=== PATIENT | male | born 1940 | race Caucasian/White ===

== ENCOUNTER → 2018-06-06 | Outpatient (CLI) | payer MEDICARE, OTHER | LOC: M WHC 09:44 | DX: M85.819 Other specified disorders of bone density and structure, unspecified shoulder (principal) | CPT/HCPCS: 77080 ==

== ENCOUNTER → 2019-12-12 | Outpatient (CLI) | payer MEDICARE, OTHER ==
--- NOTE | 2019-12-12 14:02 | REP ---
REASON FOR EXAM: Chest wall contusion. There are no priors for comparison. Six views of the right ribs were obtained with frontal view of the chest. The frontal view of the chest shows the lung franklin to be clear, pleural angles to be sharp, and the cardiomediastinal silhouette to be within normal limits. Multiple views of the right ribs show a fracture involving the anterior aspect of the right 11th and possibly 10th ribs. IMPRESSION: Fracture involving the anterior aspect of the right 11th rib with a possible 10th rib fracture as well. Electronically Signed by Se Cronin DO 12/12/2019 02:24 P
== END ==
LOC: M WUC 09:25
PROVIDERS: ATTEND Physician Assistant
DX: S22.31XA Fracture of one rib, right side, initial encounter for closed fracture (principal); X58.XXXA Exposure to other specified factors, initial encounter; Y92.89 Other specified places as the place of occurrence of the external cause

== ENCOUNTER → 2020-01-02 | Outpatient (CLI) | payer MEDICARE, OTHER ==
[2020-01-02 14:29] LABS: BASO % 0.6 % (0.0-1.0); EOS # 0.1 10^3/uL (0.0-0.5); EOS % 1.9 % (0.0-3.0); HEMOGLOBIN 13.7 g/dl (13.5-17.5); LYMPH # 2.3 10^3/uL (1.5-5.0); MEAN CORPUSCULAR HEMOGLOBIN 31.8 pg (27.0-33.0); MEAN CORPUSCULAR HGB CONC 33.4 g/dl (32.0-36.5); MEAN CORPUSCULAR VOLUME 95.1 fl (80.0-96.0); MONO # 0.5 10^3/uL (0.0-0.8); MONO % 6.5 % (0.0-5.0); NEUTROPHILS % 57.7 % (36.0-66.0); PLATELET COUNT, AUTOMATED 218 10^3/uL (150-450); RED BLOOD COUNT 4.31 10^6/uL (4.30-6.10); WHITE BLOOD COUNT 6.9 10^3/uL (4.0-10.0)
[2020-01-02 14:56] LABS: ALBUMIN 4.4 GM/DL (3.2-5.2); ALT/SGPT 21 U/L (12-78); BILIRUBIN,TOTAL 1.3 MG/DL (0.2-1.0); BLOOD UREA NITROGEN 22 MG/DL (7-18); CALCIUM LEVEL 9.5 MG/DL (8.8-10.2); CARBON DIOXIDE LEVEL 23 MEQ/L (21-32); CHLORIDE LEVEL 106 MEQ/L (98-107); CREATININE FOR GFR 1.11 MG/DL (0.70-1.30); GLOMERULAR FILTRATION RATE > 60.0 (>42); GLUCOSE, FASTING 171 MG/DL (70-100); POTASSIUM SERUM 4.3 MEQ/L (3.5-5.1); SODIUM LEVEL 140 MEQ/L (136-145); TOTAL PROTEIN 7.9 GM/DL (6.4-8.2)
== END ==
LOC: M WUC 11:56
PROVIDERS: ATTEND Physician Assistant
DX: R04.0 Epistaxis (principal)

== ENCOUNTER → 2020-06-07 | Outpatient (CLI) | payer SELFPAY | LOC: M LABSMTC 11:37 → EEVIPCON 11:37 | PROVIDERS: ATTEND Pediatrics | DX: Z20.828 Contact with and (suspected) exposure to other viral communicable diseases (principal) ==

== ENCOUNTER → 2020-06-17 | Outpatient (CLI) | payer SELFPAY | LOC: M LABSMTC 14:07 | PROVIDERS: ATTEND Pediatrics | DX: Z20.828 Contact with and (suspected) exposure to other viral communicable diseases (principal) ==

== ENCOUNTER → 2020-11-20 | Outpatient (CLI) | payer OTHER ==
--- NOTE | 2020-11-21 02:01 | REP ---
INDICATION: PAIN IN LEFT HIP COMPARISON: None. TECHNIQUE: AP, lateral, coned-down views of the lumbar spine. FINDINGS: Three views of the lumbosacral spine demonstrate satisfactory alignment and lordosis without acute fracture / compression injury or subluxation. Moderate/advanced multilevel degenerative changes include endplate sclerosis, osteophytosis, disc space narrowing and facet hypertrophy. Findings most pronounced at L5-S1. IMPRESSION: 1. No acute fracture / compression injury or subluxation. 2. Moderate to advanced multilevel degenerative changes. <Electronically signed by Russell Andrea > 11/21/20 0156
--- NOTE | 2020-11-21 02:07 | REP ---
INDICATION: PAIN IN LEFT HIP COMPARISON: None. TECHNIQUE: AP and frog-lateral views of the left hip FINDINGS: Generalized age-related changes include increased sclerosis to the acetabulum with joint space narrowing and marginal spurring. No evidence for acute or healed injury. Surrounding soft tissues are normal. IMPRESSION: generalized age-related degenerative changes. <Electronically signed by Russell Andrea > 11/21/20 0202
== END ==
LOC: M RAD 17:15
PROVIDERS: ATTEND Nurse Practitioner Family
DX: M51.37 Other intervertebral disc degeneration, lumbosacral region (principal); M16.12 Unilateral primary osteoarthritis, left hip

== ENCOUNTER → 2021-03-04 | Outpatient (RCR) | payer MEDICARE, OTHER | LOC: M PT 02-12 10:08 | PROVIDERS: ATTEND Student in an Organized Health Care Education/Training Program | DX: R26.81 Unsteadiness on feet (principal); E11.40 Type 2 diabetes mellitus with diabetic neuropathy, unspecified ==

== ENCOUNTER 2021-04-01 13:01 | Outpatient (RCR) | payer MEDICARE, OTHER | END 2021-04-03 | LOC: M PT 13:01 | PROVIDERS: ATTEND Student in an Organized Health Care Education/Training Program | DX: R26.81 Unsteadiness on feet (principal); E11.40 Type 2 diabetes mellitus with diabetic neuropathy, unspecified ==

== ENCOUNTER 2021-04-10 12:14 | Outpatient (RCR) | payer MEDICARE, OTHER | END 2021-05-04 | LOC: M PT 12:14 | PROVIDERS: ATTEND Student in an Organized Health Care Education/Training Program | DX: R26.81 Unsteadiness on feet (principal); E11.40 Type 2 diabetes mellitus with diabetic neuropathy, unspecified ==

== ENCOUNTER → 2022-10-06 | Outpatient (CLI) | payer MEDICARE, OTHER ==
[2022-10-06 12:47] LABS: BLOOD UREA NITROGEN 16 MG/DL (9-23); CREATININE FOR GFR 0.95 MG/DL (0.70-1.30); GLOMERULAR FILTRATION RATE > 60.0 (>35)
== END ==
LOC: M LAB 11:40
PROVIDERS: ATTEND Student in an Organized Health Care Education/Training Program
DX: Z13.228 Encounter for screening for other metabolic disorders (principal)

== ENCOUNTER → 2022-10-08 | Outpatient (CLI) | payer MEDICARE, OTHER ==
[~2022-10-08] MED LIST: ISOVUE-370 76% 100ML VIAL As Ordered ONE
== END ==
LOC: M RAD 12:34
PROVIDERS: ATTEND Student in an Organized Health Care Education/Training Program
DX: R07.0 Pain in throat (principal)
CPT/HCPCS: 70470; 70491; Q9967

== ENCOUNTER → 2023-11-12 | Outpatient (REF) | payer MEDICARE, OTHER | LOC: M LAB REF 11-11 14:15 | PROVIDERS: ATTEND Physician Assistant | DX: R19.7 Diarrhea, unspecified (principal) ==

== ENCOUNTER → 2024-03-01 | Outpatient (CLI) | payer MEDICARE, OTHER | LOC: M RAD 13:55 | PROVIDERS: ATTEND Internal Medicine Endocrinology, Diabetes & Metabolism | DX: E05.00 Thyrotoxicosis with diffuse goiter without thyrotoxic crisis or storm (principal) | CPT/HCPCS: 78012; A9516 ==

== ENCOUNTER → 2024-03-08 | Outpatient (CLI) | payer MEDICARE, OTHER ==
[~2024-03-08] MED LIST changes: -ISOVUE-370 76% 100ML VIAL As Ordered ONE; +PROHANCE 279.3MG/ML 5ML VIAL As Ordered ONE
== END ==
LOC: M RAD 09:52
PROVIDERS: ATTEND Student in an Organized Health Care Education/Training Program
DX: I67.82 Cerebral ischemia (principal); H70.93 Unspecified mastoiditis, bilateral; R89.1 Abnormal level of hormones in specimens from other organs, systems and tissues
CPT/HCPCS: 70553; A9576

== ENCOUNTER → 2024-06-30 | Outpatient (REF) | payer MEDICARE, OTHER ==
[2024-06-30 17:22] LABS: ALBUMIN 3.9 G/DL (3.2-5.2); ALKALINE PHOSPHATASE 163 U/L (40-129); ALT/SGPT 20 U/L (7.0-40); AST/SGOT 17 U/L (<34); BILIRUBIN,TOTAL 1.1 MG/DL (0.3-1.2); BLOOD UREA NITROGEN 25 MG/DL (9-23); CARBON DIOXIDE LEVEL 29 MMOL/L (20-31); CHLORIDE LEVEL 103 MMOL/L (98-107); CHOLESTEROL LEVEL 103 MG/DL (<200); CHOLESTEROL RISK RATIO 2.63 (<5); CREATININE FOR GFR 0.93 MG/DL (0.70-1.30); GLOMERULAR FILTRATION RATE > 60.0 (>35); GLUCOSE, FASTING 128 MG/DL (74-106); HDL CHOLESTEROL 39.1 MG/DL (>40); LDL CHOLESTEROL 42.1 MG/DL (<100); NON-HDL-C 63.9 MG/DL; POTASSIUM SERUM 5.2 MMOL/L (3.5-5.1); SODIUM LEVEL 141 MMOL/L (136-145); TRIGLYCERIDES LEVEL 109 MG/DL (<150)
[2024-06-30 17:29] LABS: TOTAL 25(OH) VITAMIN D 41.7 NG/ML (20.0-100.0)
[2024-06-30 17:54] LABS: HIV 1&2 SCREEN NEGATIVE (NEGATIVE)
[2024-06-30 18:02] LABS: HEPATITIS C VIRUS ABY INDEX < 0.02 INDEX (<0.8)
== END ==
LOC: M LAB REF 16:28
PROVIDERS: ATTEND Physician Assistant
DX: E55.9 Vitamin D deficiency, unspecified (principal); E11.9 Type 2 diabetes mellitus without complications; Z11.9 Encounter for screening for infectious and parasitic diseases, unspecified

== ENCOUNTER → 2024-10-16 | Outpatient (CLI) | payer MEDICARE, OTHER ==
[2024-10-16 15:25] LABS: FREE T4 0.71 NG/DL (0.89-1.76)
[2024-10-16 15:26] LABS: THYROID STIMULATING HORMONE 6.622 uIU/ML (0.55-4.78)
== END ==
LOC: M WUC 12:16
PROVIDERS: ATTEND Nurse Practitioner Family
DX: E05.00 Thyrotoxicosis with diffuse goiter without thyrotoxic crisis or storm (principal)

== ENCOUNTER → 2025-01-22 | Outpatient (CLI) | payer MEDICARE, OTHER ==
[2025-01-22 18:14] LABS: FREE T4 1.15 NG/DL (0.89-1.76)
== END ==
LOC: M WUC 14:44
PROVIDERS: ATTEND Nurse Practitioner Family
DX: E05.00 Thyrotoxicosis with diffuse goiter without thyrotoxic crisis or storm (principal)

== ENCOUNTER → 2025-05-14 | Outpatient (CLI) | payer MEDICARE, OTHER ==
[2025-05-14 19:35] LABS: FREE T4 1.47 NG/DL (0.89-1.76)
== END ==
LOC: M WUC 14:44
PROVIDERS: ATTEND Nurse Practitioner Family
DX: E05.00 Thyrotoxicosis with diffuse goiter without thyrotoxic crisis or storm (principal)

== ENCOUNTER → 2025-06-25 | Outpatient (REF) | payer MEDICARE, OTHER ==
[2025-06-25 16:41] LABS: APPEARANCE, URINE CLEAR (CLEAR); BACTERIA, URINE AUTO NEGATIVE (NEGATIVE); BILIRUBIN, URINE AUTO NEGATIVE (NEGATIVE); BLOOD, URINE BLOOD NEGATIVE (NEGATIVE); GLUCOSE, URINE (UA) AUTO NEGATIVE (NEGATIVE); KETONE, URINE AUTO NEGATIVE (NEGATIVE); LEUKOCYTE ESTERASE, URINE AUTO NEGATIVE (NEGATIVE); MUCUS, URINE SMALL (NEGATIVE); NITRITE, URINE AUTO NEGATIVE (NEGATIVE); PROTEIN, URINE AUTO NEGATIVE (NEGATIVE); RBC, URINE AUTO 0 /HPF (0-3); SPECIFIC GRAVITY URINE AUTO 1.016 (1.002-1.035); SQUAMOUS EPITHELIAL CELL UR AU 0 /HPF (0-6); UROBILINOGEN, URINE AUTO 0.2 mg/dL (0.0-2.0); WBC, URINE AUTO 1 /HPF (0-3)
[2025-06-25 17:19] LABS: ESTIMATED AVERAGE GLUCOSE 131.0 MG/DL (60-110)
[2025-06-25 17:21] LABS: CREATININE, URINE 161.6 MG/DL; MALB URINE SIEMENS 17.0 MG/L; MAU/CREAT RATIO 10.5 MCG/MG (0.0-30.0)
[2025-06-25 17:21] LABS: ALT/SGPT 18.0 U/L (7.0-40); AST/SGOT 18.0 U/L (<34); CALCIUM LEVEL 9.0 MG/DL (8.3-10.6); CARBON DIOXIDE LEVEL 28.0 MMOL/L (20-31); CHLORIDE LEVEL 105.0 MMOL/L (98-107); CHOLESTEROL LEVEL 111.0 MG/DL (<200); CHOLESTEROL RISK RATIO 3.31 (<5); CREATININE FOR GFR 0.88 MG/DL (0.70-1.30); GLOMERULAR FILTRATION RATE 85.3 (>35); LDL CHOLESTEROL 51.3 MG/DL (<100); NON-HDL-C 77.5 MG/DL; POTASSIUM SERUM 4.4 MMOL/L (3.5-5.1); SODIUM LEVEL 143.0 MMOL/L (136-145); TRIGLYCERIDES LEVEL 131.0 MG/DL (<150)
[2025-06-25 17:26] LABS: TOTAL 25(OH) VITAMIN D 97.7 NG/ML (20.0-100.0)
== END ==
LOC: M LAB REF 16:27
PROVIDERS: ATTEND Physician Assistant
DX: I10 Essential (primary) hypertension (principal); E78.5 Hyperlipidemia, unspecified; E11.9 Type 2 diabetes mellitus without complications; E55.9 Vitamin D deficiency, unspecified